=== PATIENT | male | born 1960 | race Caucasian/White ===

== ENCOUNTER → 2020-08-14 | Outpatient (CLI) | payer OTHER ==
--- NOTE | 2020-08-14 11:02 | MR ---
MR abdomen with and without contrast HISTORY: Mass on right kidney, kidney lesion Multiplanar multisequence and postcontrast images obtained through the abdomen with the patient recei ving 9.5 cc Gadavist IV. No comparison available. There are multiple foci of varied signal on T1 and T2-weighted sequences within the kidneys. Within t he right kidney there is an exophytic focus noted anteriorly measuring 3.5 cm which shows some increa sed signal and T1-weighted images, high signal on T2 weighted images. Following contrast administrati on, no abnormal enhancement. Smaller lesion shows increased signal posteriorly within the right kidne y on T1, increased signal also noted within one of the lesions in the midpole the left kidney on T1-w eighted sequences. Lesions show increased signal in T2-weighted sequences. There is no abnormal enhan cement on contrast administration however. No retroperitoneal adenopathy. There is no ascites. Aorta shows normal caliber. Liver shows some smal l T2 bright foci which do not enhance following contrast menstruation showed low signal. Gallbladder is unremarkable. The spleen and pancreas are normal. Lung bases show no pleural effusion. IMPRESSION: Findings likely represent proteinaceous cysts bilaterally along with some simple cysts. F ollow-up could be performed to assess for stability.
== END | disposition home or self-care (01) ==
LOC: RADMRIMAIN 07:54
PROVIDERS: ATTEND Internal Medicine
DX: N28.9 Disorder of kidney and ureter, unspecified (principal)
CPT/HCPCS: 74183; A9585

== ENCOUNTER → 2021-05-13 | Outpatient (CLI) | payer OTHER ==
--- NOTE | 2021-05-14 05:16 | MR ---
EXAMINATION TYPE: MR abdomen wo/w con DATE OF EXAM: 05/13/2021 COMPARISON: 08/14/2020 HISTORY: Cyst of Kidney CONTRAST: Standard multiplanar, multisequence MRI departmental protocol images were obtained without contrast a nd with 10 mL intravenous Gadavist gadolinium contrast. Lung bases appear clear. There is no sign of pleural effusion. There is no pericardial effusion. Live r and spleen appear intact. There is no evidence of pancreatic mass. Gallbladder appears normal. The bile ducts are not dilated. Pancreatic duct appears normal. There are multiple bilateral renal cortical cysts. Largest on the right side measures 3.8 cm in the u pper pole of the right kidney. Largest on the left side is near the interpolar left kidney measuring 3.2 cm. There is no hydronephrosis. Some of the cysts show some intermediate signal consistent with p rotein. The wall of the cysts are thin. There is no evidence of a solid renal mass. Contrast images show no pathologic enhancement. There is normal enhancement of the portal venous syst em. There is no evidence of thrombosis. There is no retroperitoneal adenopathy. There is no sign of a scites. There is no evidence of a bowel obstruction. IMPRESSION: Numerous thin-walled bilateral renal cortical cysts. Some of these probably contain protein with inte rmediate signal. No pathologic enhancement. No renal obstruction. No dilated ducts. No change compare d to old exam.
== END | disposition home or self-care (01) ==
LOC: RADMRIMAIN 14:47
PROVIDERS: ATTEND Internal Medicine
DX: N28.1 Cyst of kidney, acquired (principal)
CPT/HCPCS: 74183; A9585

== ENCOUNTER 2022-05-13 11:12 | Emergency (ER) | payer OTHER ==
[2022-05-13 11:17] VITALS: RESP 18
[2022-05-13] MEDS ORDERED: ceFAZolin 1,000 MG VIAL (IM USE) IM STA (11:28)
[2022-05-13] MEDS ORDERED: HYDROcodone/APAP 5-325MG 1 EACH TAB PO STA (11:28)
[2022-05-13] MEDS ORDERED: DIPH,PERTUS(ACELL)TETVAC-LF 0.5 ML VIAL IM ONE (11:28)
--- NOTE | 2022-05-13 11:33 | ED ---
Upper Extremity HPI - General Chief Complaint: Extremity Injury, Upper Stated Complaint: [facility]-hand injury Time Seen by Provider: 05/13/22 11:18 Source: patient, RN notes reviewed Mode of arrival: ambulatory Limitations: no limitations - History of Present Illness Initial Comments: This is a 62-year-old male who presents to the emergency department for a right hand injury. When he was at work a feed roller caught his glove and pulled his hand in the machine, causing the injury to his fingers. Fingers 3, 4, and 5 on the right hand were involved. Unsure when his last tetanus vaccine was. He is not on any blood thinners. Denies any fevers, chills, sore throat, cough, dyspnea, chest pain, palpitations, abdominal pain, nausea, vomiting, diarrhea, back pain, or headaches. MD Complaint: Injury to:: right, hand Place: work - Related Data Previous Rx's Medication Instructions Recorded Cephalexin [Keflex] 500 mg PO Q6HR 7 Days #28 cap 05/13/22 HYDROcodone/APAP 5-325MG [[place] 1 tab PO Q6HR PRN 3 Days #12 tab 05/13/22 5-325] Allergies Allergy/AdvReac Type Severity Reaction Status Date / Time No Known Allergies Allergy Verified 05/13/22 11:17 Review of Systems ROS Statement: Those systems with pertinent positive or pertinent negative responses have been documented in the HPI. ROS Other: All systems not noted in ROS Statement are negative. Past Medical History Past Medical History: Hypertension History of Any Multi-Drug Resistant Organisms: None Reported Past Surgical History: No Surgical Hx Reported Past Psychological History: No Psychological Hx Reported Smoking Status: Current every day smoker Past Alcohol Use History: Occasional Past Drug Use History: None Reported General Exam Limitations: no limitations General appearance: alert, in no apparent distress Head exam: Present: atraumatic, normocephalic, normal inspection Respiratory exam: Present: normal lung sounds bilaterally. Absent: respiratory distress, wheezes, rales, rhonchi, stridor Cardiovascular Exam: Present: regular rate, normal rhythm, normal heart sounds. Absent: systolic murmur, diastolic murmur, rubs, gallop, clicks Extremities exam: Present: other (The tip of the right middle finger was severed at the level of the top of the fingernail. The right fourth finger also had the tip severed on a diagonal angle and the fingernail fell off. He does have sensation and movement of all 5 digits.) Neurological exam: Present: alert, oriented X3, CN II-XII intact Psychiatric exam: Present: normal affect, normal mood Course Vital Signs 05/13/22 05/13/22 11:15 14:50 Temperature 97.0 F L 98.4 F Pulse Rate 61 89 Respiratory 18 18 Rate Blood Pressure 149/86 134/78 O2 Sat by Pulse 95 99 Oximetry Procedures - Laceration Laceration #1 Consent Obtained: verbal consent Indication: laceration Site: other (right middle finger) Description: irregular Anesthetic Used: lidocaine 1% Anesthesia Technique: nerve block Amount (mls): 2 Pre-repair: wound explored, irrigated extensively, extensive debridement Type of Sutures: nylon Size of Sutures: 5-0 Number of Sutures: 5 (approximate) Technique: simple, interrupted Laceration #2 Consent Obtained: verbal consent Indication: laceration Site: other (right fifth finger) Description: irregular Depth: simple, single layer Anesthetic Used: lidocaine 1% Anesthesia Technique: nerve block Amount (mls): 2 Pre-repair: wound explored, irrigated extensively Type of Sutures: nylon Size of Sutures: 5-0 Number of Sutures: 5 (approximate) Technique: simple, interrupted Medical Decision Making - Medical Decision Making This is a 62-year-old male who presents to the emergency department for a right hand injury and my interpretation of the x-ray on his right hand reveals extensive soft tissue injury to the distal aspect of the third and fourth digits. There is a displaced fracture at the top of the distal phalanx on the fourth finger. Sutures were largely used to reposition the finger and orient it as straight as possible, as opposed to closing lacerations due to the extent of the injury. Hemostasis was achieved. There was no obvious injury to the fifth finger that required repair. The open wounds at the tops of the finger were covered with Gelfoam and both fingers were bandaged. He was given IM Kefzol and his tetanus status was updated. Prescription for a seven-day course of Keflex and [place] provided. Instructed him to alternate with ibuprofen and Tylenol for pain relief and to take the [place] sparingly when his pain is the most severe. Advised that this can be sedating and he should avoid driving or operating machinery when taking this. Information for orthopedic follow-up was provided, he is instructed to contact them today for a follow-up appointment. Return precautions reviewed in depth, the patient is instructed to return to the emergency department with any new, worsening, or concerning symptoms. Patient verbalized understanding. This case was discussed in detail with the attending ED physician. Presentation, findings, and treatment plan discussed in detail as well. - Radiology Data Radiology results: report reviewed, image reviewed Disposition Clinical Impression: Closed fracture of tuft of distal phalanx of finger, Laceration of hand, left Disposition: HOME SELF-CARE Instructions (If sedation given, give patient instructions): Care For Your Stitches (ED), Laceration (ED), Finger Fracture (ED) Additional Instructions: Return to the emergency department with any new, worsening, or concerning symptoms and in 7 days for removal of your stitches. Take the antibiotic as prescribed for 7 days. Alternate with ibuprofen and Tylenol for pain relief. Contact orthopedics as listed below for a follow up appointment. Follow up with your primary care provider in 1-2 days. Prescriptions: Cephalexin [Keflex] 500 mg PO Q6HR 7 Days #28 cap HYDROcodone/APAP 5-325MG [[place] 5-325] 1 tab PO Q6HR PRN 3 Days #12 tab PRN Reason: Pain Is patient prescribed a controlled substance at d/c from ED?: Yes When asked, does pt state using other controlled substances?: No If prescribed controlled substance>3 days was MAPS reviewed?: Prescribed <3 Days Referrals: Itzel Briscoe MD [STAFF PHYSICIAN] - 1-2 days Rickie Alcocer DO [Doctor of Osteopathic Medicine] - 1-2 days
--- NOTE | 2022-05-13 12:08 | XR ---
EXAMINATION TYPE: XR hand complete RT DATE OF EXAM: 05/13/2022 COMPARISON: NONE HISTORY: Pain TECHNIQUE: Three views are submitted. FINDINGS: Large soft tissue lacerations involving the distal margin of the third fourth and fifth digit. Abnorm al attenuation adjacent to the distal phalanx of the fourth and fifth digit could represent foreign b joanna. There is a complex fracture involving the top distal phalanx fourth digit extending to the artic ular surface. There is displacement. Remaining osseous structures are grossly intact. Linear area of density seen adjacent to the distal phalanx of the second digit could represent 4 body. IMPRESSION: 1. Soft tissue lacerations involving the distal margin of the third, fourth and fifth digits with a d isplaced intra-articular fracture of any of the tuft to the articular surface of the distal phalanx f ourth digit. 2. Abnormal attenuation adjacent to the distal phalanx of the second, fourth and fifth digits could r epresent foreign body in the soft tissues correlate clinically.
[2022-05-13] MEDS ORDERED: BUPIVACAINE (PF) 0.5% 30 ML VIAL SQ ONE (12:45)
[2022-05-13] MEDS ORDERED: LIDOCAINE 1% INJ 10MG/ML (30 ML VIAL-PF) SQ ONE (12:45)
[2022-05-13] MEDS ORDERED: CEPHALEXIN 500MG STARTER PACK 4 CAP BTL PO STA (14:04)
[2022-05-13] MEDS ORDERED: IBUPROFEN 600 MG STARTER PACK 4 TAB BTL PO STA (14:04)
[2022-05-13] MEDS ORDERED: ACET/COD 300 MG/30 MG STARTER PACK 6 TAB BTL PO STA (14:04)
[2022-05-13] MEDS ORDERED: GELATIN SPONGE,ABSORB (LARGE) 1 EACH SPONGE TOPICAL STA (14:09)
[2022-05-13 18:52] VITALS: BP 134/78; PULSE 89; TEMP 98.4
== END 2022-05-13 14:50 | disposition home or self-care (01) ==
LOC: EC 11:12
DX: S62.634A Displaced fracture of distal phalanx of right ring finger, initial encounter for closed fracture (principal); S61.316A Laceration without foreign body of right little finger with damage to nail, initial encounter; Z23 Encounter for immunization; F17.200 Nicotine dependence, unspecified, uncomplicated; W23.1XXA Caught, crushed, jammed, or pinched between stationary objects, initial encounter; Y99.0 Civilian activity done for income or pay
CPT/HCPCS: 73130; 90715; 99283; 96372 ×2; 90471; 12001; J0690; J2001

== ENCOUNTER 2022-05-22 11:54 | Day surgery (SDC) | payer OTHER ==
--- NOTE | 2022-05-20 13:28 | P.HPOR ---
History of Present Illness H&P Date: 05/20/22 Chief Complaint: Right middle finger/ring finger partial tip amputations Subjective: This is a 62 year old male that presents today for initial evaluation regarding a right hand injury that occurred on 05/13/22 when his hand got pulled into a mill roller and pulled the glove in the roller and ultimately his fingertips of the middle and ring finger. He was seen in the ED where his wounds were irrigated and sutured and soft dressing was placed. He has pain with movement of the fingers and denies any other areas of pain. Antibiotics were given at the time of the injury and a PO course of keflex. Physical Examination: RUE: AIN/PIN/Radial/Ulnar/Median motor intact. Radial/Ulnar/Median SILT. 2+/4 Radial/Ulnar pulses palpated. 5/5 APB, 5/5 FDI. Negative Finkelsteins, negative CMC grind, negative Durkan's compression. Partial tip amputation of right middle finger with exposed distal phalanx. Partial tip amputation of the right ring finger with loss of nailplate and what appears to be sterile matrix nail bed la ceration. FDP/Terminal extensor tendons are intact to all digits. Imaging: X-Rays of the right hand 3v taken in the ED on 05/13/22 demonstrate longitudinal fracture of ring finger distal phalanx, non displaced. Impression: 1.) Right middle finger partial tip amputation with nail bed laceration 2.) Right ring finger distal phalanx fracture, non displaced, 3.) Sterile matrix/germinal matrix nail bed laceration of right ring finger. Plan: Diagnosis and treatment options were discussed with the patient. We discussed he has exposed distal phalanx on the middle finger that will need coverage. I recommend right middle finger and right ring finger revision amputations with nailbed laceration repair with incision a debridement of non viable tissue. Risks and benefits of surgery including bleeding, infection, damage to surrounding tissue, need for further surgery, residual numbness were discussed and the patient wished to go forward with surgery. New dressing were place on the digits. I anticipate at least 2 weeks off from work and then progression to left handed work only for likely 4 weeks after surgery. The patient is agreeable with this plan. -Rickie Alcocer DO Orthopedic Hand/Upper Extremity Surgeon Past Medical History Past Medical History: Hypertension History of Any Multi-Drug Resistant Organisms: None Reported Past Surgical History: No Surgical Hx Reported Past Psychological History: No Psychological Hx Reported Smoking Status: Current every day smoker Past Alcohol Use History: Occasional Past Drug Use History: None Reported Medications and Allergies Home Medications Medication Instructions Recorded Confirmed Type Cephalexin [Keflex] 500 mg PO Q6HR 7 Days #28 cap 05/13/22 Rx HYDROcodone/APAP 5-325MG [[place] 1 tab PO Q6HR PRN 3 Days #12 tab 05/13/22 Rx 5-325] Allergies Allergy/AdvReac Type Severity Reaction Status Date / Time No Known Allergies Allergy Verified 05/13/22 11:17 Physical Examination Osteopathic Statement: *. No significant issues noted on an osteopathic structural exam other than those noted in the History and Physical/Consult.
[2022-05-20 15:19] VITALS: BMI 34.4
[~2022-05-22 11:54] MED LIST: DEXAMETHASONE SOD PHOSPHATE 4 MG/ML 1 ML VIAL IV ONE; HYDROmorphone 0.5 MG/0.5 ML SYRINGE IVP PRN; LACTATED RINGERS 1,000 ML IV SCH; MIDAZOLAM 2 MG/2 ML VIAL IV PRN; ONDANSETRON 4 MG/2 ML VIAL IVP ONE; SCOPOLAMINE 1 MG/72 HR PATCH TRANSDERM ONE
[2022-05-22 12:35] VITALS: TEMP 97.3
[2022-05-22] MEDS ORDERED: KETAMINE 10 MG/ML 20 ML VIAL ONE (13:30)
[2022-05-22] MEDS ORDERED: fentaNYL (PF) 50 MCG/ML 2 ML AMP ONE (13:30)
[2022-05-22] MEDS ORDERED: PROPOFOL 10 MG/ML 20 ML VIAL IV ONE (13:30)
[2022-05-22] MEDS ORDERED: MIDAZOLAM 2 MG/2 ML VIAL ONE (13:30)
[2022-05-22] MEDS ORDERED: BUPIVACAINE (PF) 0.5% 30 ML VIAL SQ ONE (13:31)
[2022-05-22] MEDS ORDERED: LIDOCAINE 1% INJ 10MG/ML (10 ML MDV) SQ ONE (13:31)
[2022-05-22] MEDS ORDERED: BACITRACIN ZINC 500 UNIT/GM OINT 28.4 GM TUBE TOPICAL ONE (13:59)
[2022-05-22] MEDS ORDERED: LACTATED RINGERS 1,000 ML IV ONE (14:28)
[2022-05-22 14:39] VITALS: PULSE 55
[2022-05-22 14:57] VITALS: BP 123/73; RESP 16
--- NOTE | 2022-05-22 16:59 | P.OP ---
Date of Procedure: 05/22/22 Preoperative Diagnosis: 1.) Right middle finger tip amputation 2.) Right middle finger nail bed laceration 3.) Left ring finger open distal phalanx fracture 4.) Left ring finger nail bed laceration Postoperative Diagnosis: 1.) Right middle finger tip amputation 2.) Right middle finger nail bed laceration 3.) Left ring finger open distal phalanx fracture 4.) Left ring finger nail bed laceration Procedure(s) Performed: 1.) Right middle finger adjacent tissue transfer/rearrangement for distal tip amputation 2 sq cm (04744) 2.) Right middle finger nail bed laceration repair (84060) 3.) Closed treatment of right ring finger open distal phalanx fracture (35739) 4.) Right ring finger nail bed laceration repair (68514) 5.) Right ring finger adjacent tissue transfer/rearrangement for distal tip amputation 2 sq cm (60816) Anesthesia: MAC Surgeon: Rickie Alcocer Estimated Blood Loss (ml): 5 Pathology: none sent Condition: stable Disposition: PACU Description of Procedure: This is a 62 year old male who sustained crush injuries to the his right middle and ring finger resulting in partial soft tissue amputations of his finger tips and presents today for surgical intervention. Risks and benefits of surgery were discussed with the patient including bleeding, damage to surrounding tissue, infection, need for further surgery as well as risks of anesthesia including pulmonary embolism and even and the patient wished to proceed with surgical intervention. The patient was seen in the pre-operative area by myself. Consent and H&P were completed and updated. The correct extremity was marked in the pre-operative area by myself and all other questions were answered. Operative Narrative: The patient was brought to the operating room by the department of anesthesia. They remained on the portable stretcher and a rolling hand table was brought to the side of the operative extremity. Pre-operative time out was performed indicating the correct patient, procedure and laterality. All in the room agreed. Pre-operative antibiotics were given prior to skin incision. The patient was then drifted off to sleep by the department of anesthesia. Digital blocks were performed of the ring and middle fingers with 10cc's of 0.5% Lidocaine and 1% lidocaine in a 50:50 mixture. A nonsterile tourniquet was then applied to the operative extremity and the right upper extremity was then prepped and draped in normal sterile fashion. The operative extremity was the exsanguinated with an esmarch bandage and the tourniquet was inflated to 250mmHg. Previously placed sutures were removed from the area of the middle and ring fingers. Previously placed gelfoam sponges were removed form the soft tissue tip amputations. And thorough irrigation was performed of the finger tips while curette and 15 blade scalpel was utilized to remove no viable tissue. Attention was brought to the middle finger. Nail plate was removed with a freer elevator in atraumatic fashion due to subungal hematoma present. There was a 1cm x1cm area of volar tip of the finger with a soft tissue defect with exposed distal phalanx as well as a sterile matrix nailbed laceration. Nailbed laceration was repaired with interrupted 5-0 Vicryl sutures. Local rearrangement of viable soft tissue and skin from the crush injury was able to be rotated to provide soft tissue coverage over the exposed distal phalanx and secured with 4-0 chromic suture. Attention was then brought to the ring finger which had sustained a longitudinal non displaced distal phalanx fracture. The nailplate was already removed from the initial traumatic injury. There was a 1cm x1cm area of volar ulnar aspect of the finger with a soft tissue defect with exposed distal phalanx as well as a sterile matrix nailbed laceration. Nailbed laceration was repaired with interrupted 5-0 Vicryl sutures. Local rearrangement of viable soft tissue and skin from the crush injury was able to be rotated to provide soft tissue coverage over the exposed distal phalanx and secured with 4-0 chromic suture. The remainder of the partial thickness soft tissue defects of both the ring and middle fingers were amendable to healing by secondary intention. An occlusive dressing was applied to each digit with bacitracin, adaptic, 4x4s, cast padding, kerlix wrap and farhan-bandage. Tourniquet was let down and the hand had immediate perfusion. The patient was then woken by the department of anesthesia and transferred to PACU in stable condition. Rickie Alcocer D.O. Orthopedic Hand/Upper Extremity Surgeon
== END 2022-05-22 15:33 | disposition home or self-care (01) ==
LOC: OR 11:54
PROVIDERS: ATTEND Orthopaedic Surgery Hand Surgery
DX: S62.634B Displaced fracture of distal phalanx of right ring finger, initial encounter for open fracture (principal); F17.200 Nicotine dependence, unspecified, uncomplicated; I10 Essential (primary) hypertension; X58.XXXA Exposure to other specified factors, initial encounter
CPT/HCPCS: 26750; J2250; J1100; J0690; J2405; J3010; J2001; J2704